=== PATIENT | male | born 2000 | race Caucasian/White ===

== ENCOUNTER 2022-01-04 05:59 | Emergency (ER) | payer OTHER, SELFPAY ==
--- NOTE | ~2022-01-04 | CT_ITS ---
EXAMINATION: CT brain wo con DATE: 01/04/2022 07:58 INDICATION: Headache. TECHNIQUE: Computed tomography (CT) of the head was performed without intravenous contrast. The mA wa s adjusted according to patient size. Iterative reconstruction technique was employed. The dose-lengt h product was 605.33 mGy-cm. COMPARISON: None. FINDINGS: There is no intracranial hemorrhage, acute infarction, or abnormal intracranial mass lesion . Cavum septum pellucidum is noted. There is ventriculomegaly involving the lateral, third, and fourt h ventricles. There are bilateral frontal lobe and tracheostomy catheters with tips in the frontal ho rns of the lateral ventricles. There are old nithya holes in the frontal bones bilaterally. 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 The mastoid air cells are normal. There is mild mucosal thickening in the ethmoid sinuses. The orbits are normal. IMPRESSION: 1. Ventriculomegaly involving the lateral, third, and fourth ventricles with bilateral ventriculostom y catheters in expected positions. Reviewed, dictated and finalized at location A. IMPRESSION: 1. Ventriculomegaly involving the lateral, third, and fourth ventricles with bi lateral ventriculostomy catheters in expected positions.
--- NOTE | ~2022-01-04 | XR_ITS ---
EXAMINATION: XR shunt series DATE: 01/04/2022 08:00 INDICATION: Headache. TECHNIQUE: 7 views of a shunt series were obtained. COMPARISON: None. FINDINGS: There are bilateral ventriculoperitoneal shunts in expected positions without kink or disco nnect of the radiopaque portions. A calcified left lung nodule is consistent with old granulomatous d isease. There are no dilated loops of bowel. IMPRESSION: 1. Bilateral ventriculoperitoneal shunts in expected positions. Reviewed, dictated and finalized at location A.
[2022-01-04 06:02] VITALS: BP 139/79; PULSE 75; RESP 18; TEMP 37.1; O2SAT 99
--- NOTE | 2022-01-04 07:29 | ED.GENADULT ---
HPI - General Adult General Chief complaint: Headache Stated complaint: headache, hydrocephalus with shunt Time Seen by Provider: 01/04/22 06:55 History of Present Illness HPI narrative: This is a 33-year-old male with history of hydrocephalus and 2 [employer] shins presenting ED with a headache. Patient says that his headache started 1 and half days ago. It is a throbbing over his entire head. It is nonradiating, 8/10 intensity, slowly getting worse. Says is similar to previous headaches he has had in the past although it is worse in intensity. There are no exacerbating or alleviating factors. It is associated with photophobia. Patient has not had any fever chills, nausea vomiting or diarrhea. Patient sets is [employer] shunt reservoir is feel normal. Patient has had not had a [employer] shunt revisions as 2005. Related Data Allergies Allergy/AdvReac Type Severity Reaction Status Date / Time No Known Allergies Allergy Verified 01/04/22 06:11 Review of Systems Review of Systems: CONSTITUTIONAL: Denies night sweats. EYES: No eye pain ENT: Denies rhinorrhea CARDIOVASCULAR: Denies palpitations RESPIRATORY: Denies hemoptysis GASTROINTESTINAL: Denies hematemesis GENITOURINARY: Denies hematuria. SKIN: Denies rash MUSCULOSKELETAL: Denies myalgia. NEUROLOGIC: Denies weakness. PSYCHIATRIC: Denies delusions PMFSH Past Medical History Medical History Erectile dysfunction HTN (hypertension) Hydrocephalus Surgical History Surgical History Hx of tonsillectomy [employer] (ventriculoperitoneal) shunt status Social History Social History Social History: Patient drinks alcohol occasionally, denies tobacco or drug use. Exam Narrative: APPEARANCE: No apparent distress. Head atraumatic. [employer] shunt reservoir is a palpable on top the patient's head. Their depressible and not region. EYES: PERRLA/EOMI, NOSE: Normal no drainage NECK: Supple, Trachea midline RESPIRATORY: CTAB, No increased work of breathing. CARDIOVASCULAR: S1S2 appreciated ABDOMINAL: Soft, nontender, nondistended, MUSCULOSKELETAl: No obvious deformities NEURO: Alert. Cranial nerves 2-12 grossly intact. Sensation light touch, motor function cerebellar function intact for 4 extremities. Gait exam was normal. SKIN:: Warm, dry. Normal color PSYCHIATRIC: Normal affect Course Vital Signs Vital signs: Vital Signs Temperature 98.7 F 01/04/22 06:02 Pulse Rate 75 01/04/22 06:02 Respiratory Rate 18 01/04/22 06:02 Blood Pressure 139/79 01/04/22 06:02 Pulse Oximetry 99 01/04/22 06:02 Oxygen Delivery Room Air 01/04/22 06:02 Temperature 98.7 F 01/04/22 06:02 Pulse Rate 66 01/04/22 10:10 Respiratory Rate 19 01/04/22 10:10 Blood Pressure 138/88 01/04/22 10:10 Pulse Oximetry 97 01/04/22 10:10 Oxygen Delivery Room Air 01/04/22 06:02 Medical Decision Making MDM Narrative Medical decision making narrative: This is a 21-year-old male with history of [employer] shunts presenting ED with a headache. He is concerned about a [employer] shunt malfunction. He will be given a migraine cocktail. Shunt series has been ordered. Lab work was within normal limits. [employer] shunt series revealed proper positioning of the shunts. CT head revealed ventriculomegaly RA but with the shunts in proper position. Patient's reservoir is depressed easily and then refill. There is no evidence of obstruction at this time. The patient was still having headache was given dexamethasone and magnesium. Upon re-evaluation his headache was resolved. He will be discharged home with primary care follow-up. Medical Records Medical records narrative: Tension headache, migraine headache, [employer] shunt malfunction Vital Signs Vital Signs: Vital Signs Temperature 98.7 F 01/04/22 06:02 Pulse Rate 75 01/04/22 06:02 Respi
--- NOTE | 2022-01-04 07:44 | PC.NURSE ---
Assumed care of pt. at this time. Report from WESTON Milner
[2022-01-04 08:07] LABS: Basophils Absolute Auto 0.1 K/mm3 (0.0-0.1); Basophils Percent Auto 1.2 % (0.2-1.2); Eosinophils Absolute Auto 0.3 K/mm3 (0-0.3); Eosinophils Percent Auto 4.6 % (0-4.4); Hematocrit 48.8 % (42.0-52.0); Hemoglobin 15.7 g/dL (14.0-18.0); Immature Granulocyte Absolute 0.08 K/mm3 (0.00-0.031); Immature Granulocyte Percent A 1.2 % (0-0.5); Lymphocytes Absolute Auto 2.09 K/mm3 (0.9-3.2); Lymphocytes Percent Auto 31.2 % (18.3-44.2); Mean Corpuscular HGB Conc 32.2 g/dl (32-36); Mean Corpuscular Hemoglobin 28.5 pg (26-34); Mean Corpuscular Volume 88.7 fl (80-100); Mean Platelet Volume 11.5 fl (7.4-10.4); Monocytes Absolute Auto 0.7 K/mm3 (0.1-0.6); Monocytes Percent Auto 9.7 % (2.6-8.5); Neutrophils Absolute Auto 3.5 K/mm3 (1.3-6.7); Neutrophils Percent Auto 52.1 % (45.5-73.1); Platelet Count Result 245 k/mm3 (150-375); Red Cell Distribution Width 13.6 % (11.5-14.5); White Blood Count 6.7 K/mm3 (4.5-10.0)
[2022-01-04] MEDS: SODIUM CHLORIDE 0.9% IV 1,000 ML 999 ML IV CONT (08:12)
[2022-01-04] MEDS: PROCHLORPERAZINE EDISYLATE 10 MG/2 ML VIAL IV PUSH (08:12)
[2022-01-04] MEDS: KETOROLAC 15 MG/ML VIAL (*BKC) IV PUSH (08:13)
[2022-01-04 08:14] VITALS: BP 141/74; PULSE 71; RESP 14; O2SAT 97
[2022-01-04 08:20] LABS: Anion Gap 10 mmol/L (8-16); Blood Urea Nitrogen 9 mg/dL (9-20); Calcium 8.7 mg/dL (8.4-10.2); Carbon Dioxide 22 mmol/L (22-30); Chloride 108 mmol/L (98-107); Estimated CRCL calculation 170 ml/min; Estimated Glomerular Filt Rate > 60; Glucose 107 mg/dL (65-110); Potassium 3.9 mmol/L (3.4-5.0); Sodium 140 mmol/L (137-145)
--- NOTE | 2022-01-04 08:47 | PC.NURSE ---
Patient requests that fluid be stopped due to it bothering him . patient disconnected and walked to bathroom without difficulty.
[2022-01-04] MEDS: MAGNESIUM SULF 2 GM/WATER 50ML 2 GM/50 ML BAG IVPB (09:37)
[2022-01-04 10:10] VITALS: BP 138/88; PULSE 66; RESP 19; O2SAT 97
== END 2022-01-04 10:10 | disposition home or self-care (01) ==
PROVIDERS: Emergency Provider Emergency Medicine
DX: R51.9 Headache, unspecified (principal); I10 Essential (primary) hypertension; G91.9 Hydrocephalus, unspecified; Z98.2 Presence of cerebrospinal fluid drainage device
CPT/HCPCS: 36415; 70250; 70450; 71045; 74018; 80048; 85025; 96361; 96365; 96375; 99284; J0780; J1100; J1885; J3475; J7030